=== PATIENT | male | born 1960 | race Hispanic/Latino ===

== ENCOUNTER → 2017-07-30 | Outpatient (CLI) | payer OTHER | LOC: OIH 13:39 | PROVIDERS: ATTEND Internal Medicine | DX: M47.896 Other spondylosis, lumbar region (principal) | CPT/HCPCS: 72040; 72100 ==

== ENCOUNTER 2019-02-04 12:40 | Observation (INO) | payer MEDICAID, OTHER ==
[~2019-02-04] VITALS: Ht 167.6 cm; Wt 71.7 kg
[2019-02-04] MEDS ORDERED: ASPIRIN 325 MG TABLET ONE (13:01)
[2019-02-04 13:05] LABS: BASOPHILS % (AUTO) 0.9 % (0.0-5.0); EOSINOPHILS % (AUTO) 1.5 % (0.0-8.0); HEMATOCRIT 42.7 % (42-54); LYMPHOCYTES % (AUTO) 33.8 % (21.0-51.0); MEAN CORPUSCULAR HEMOGLOBIN 31.3 pg (27.0-33.0); MEAN CORPUSCULAR VOLUME 89.3 fL (79-99); MONOCYTES % (AUTO) 5.1 % (3.0-13.0); NEUTROPHILS % (AUTO) 58.7 % (40.0-77.0); PLATELET COUNT (AUTO) 185 K/uL (130-400); RED BLOOD CELL COUNT(AUTO) 4.78 MIL/uL (4.50-6.20); RED CELL DISTRIBUTION WIDTH 13.2 % (11.0-15.5)
[2019-02-04 13:08] LABS: APPEARANCE,URINE Clear (CLEAR); BILIRUBIN,URINE Negative (NEGATIVE); COLOR,URINE Yellow (YELLOW); GLUCOSE, URINE (UA) >=1000 mg/dL (NEGATIVE); KETONES,URINE Negative (NEGATIVE); LEUKOCYTE ESTERASE ,URINE Negative (NEGATIVE); NITRATE,URINE Negative (NEGATIVE); OCCULT BLOOD,URINE Trace (NEGATIVE); PH,URINE 5.5 (5.0-8.0); PROTEIN,URINE Negative (NEGATIVE); UROBILINOGEN,URINE 0.2 mg/dL (0.2-1.0)
[2019-02-04 13:15] LABS: CREATININE 0.9 mg/dL (0.5-1.5); POTASSIUM 4.1 mmol/L (3.5-5.1)
[2019-02-04 13:19] LABS: ALBUMIN 3.8 g/dL (3.5-5.0); BILIRUBIN,TOTAL 0.6 mg/dL (0.2-1.0); TOTAL PROTEIN, SERUM 7.5 g/dL (6.0-8.3)
[2019-02-04 13:22] LABS: BACTERIA,URINE Rare /HPF (None Seen); INR 0.99 (0.85-1.15); PARTIAL THROMBOPLASTIN TIME 27.3 SEC (26.3-35.5); PROTHROMBIN TIME 10.4 SEC (9.6-11.6); RBC,URINE None Seen /HPF (0-1); WBC,URINE None Seen /HPF (0-1)
[2019-02-04 13:41] LABS: B-TYPE NATRIURETIC PEPTIDE < 5 pg/mL (0-100)
[2019-02-04] MEDS ORDERED: NITROGLYCERIN 1GM/1 INCH PACKET TD SCH (15:45)
[2019-02-04] MEDS ORDERED: ONDANSETRON HCL 4 MG/2 ML VIAL IV PRN (15:45)
[2019-02-04] MEDS ORDERED: MORPHINE SULFATE 2 MG/ML 1ML SYG IV PRN (15:45)
[2019-02-04] MEDS ORDERED: HYDRALAZINE HCL 20 MG/ML VIAL IV PRN (15:45)
[2019-02-04] MEDS ORDERED: ACETAMINOPHEN 325 MG TAB PO PRN (15:45)
[2019-02-04] MEDS ORDERED: NITROGLYCERIN 1GM/1 INCH PACKET TD ONE (16:13)
[2019-02-04] MEDS ORDERED: SODIUM CHLORIDE 0.9% 1000ML 1,000 ML IV ONE (16:14)
[2019-02-04 17:01] LABS: ALBUMIN 3.9 g/dL (3.5-5.0); BILIRUBIN,TOTAL 0.6 mg/dL (0.2-1.0); CREATININE 0.9 mg/dL (0.5-1.5); POTASSIUM 3.6 mmol/L (3.5-5.1); TOTAL PROTEIN, SERUM 7.7 g/dL (6.0-8.3)
[2019-02-04] MEDS ORDERED: ACETAMINOPHEN 325 MG TAB ONE (20:15)
[2019-02-04] MEDS: ATORVASTATIN CALCIUM 20 MG TABLET PO SCH (21:00)
[2019-02-04] MEDS: FAMOTIDINE/PF 20 MG/2 ML VIAL IV SCH (21:00)
[2019-02-04] MEDS: INSULIN GLARGINE 100 UNITS/ML 10 ML VIAL SQ SCH (21:00)
[2019-02-04] MEDS: INSULIN HUMULIN R 100 UNIT/ML 3ML SQ SCH (21:00)
[2019-02-04] MEDS: METOPROLOL TARTRATE 25 MG TAB PO SCH (21:00)
[2019-02-04] MEDS ORDERED: BUSP7.5T7 PO (21:36)
[2019-02-04] MEDS ORDERED: ERGO500014 PO (21:36)
[2019-02-04] MEDS ORDERED: IBUP-2077 PO (21:36)
[2019-02-04] MEDS ORDERED: EZET10TA48 PO (21:36)
[2019-02-04] MEDS ORDERED: INSLAN SQ (21:36)
[2019-02-04] MEDS ORDERED: DULO60CA64 PO (21:36)
[2019-02-04] MEDS ORDERED: METF-446 PO (21:36)
[2019-02-05] VITALS (7 sets, daily range): BP systolic 103–126; BP diastolic 51–78
--- NOTE | 2019-02-05 00:40 | NUR ---
ADMISSION PATIENT WAS TRANSFERRED ON STRETCHER FROM EMERGENCY ROOM ACCOMPANIED BY NURSE. PATIENT WAS TRANSFERRED TO BED WITH NO ISSUES. PATIENT IS RESTING. NO SHORTNESS OF BREATH. NO SIGNS OF DISTRESS. COMPLAINTS OF NO CHEST PAIN AT THIS TIME. PATIENT WAS MADE COMFORTABLE IN BED. CALL LIGHT, BEDSIDE TABLE, AND URINAL ARE WITHIN REACH. PATIENT REINFORCED TO CALL FOR ANY NEEDS. NO QUESTIONS, CONCERNS, OR NEEDS AT THIS TIME.
[2019-02-05 03:39] LABS: BASOPHILS % (AUTO) 0.6 % (0.0-5.0); EOSINOPHILS % (AUTO) 1.3 % (0.0-8.0); HEMATOCRIT 40.2 % (42-54); LYMPHOCYTES % (AUTO) 29.6 % (21.0-51.0); MEAN CORPUSCULAR HEMOGLOBIN 31.9 pg (27.0-33.0); MEAN CORPUSCULAR HGB CONC 35.2 g/dL (32.0-36.0); MEAN CORPUSCULAR VOLUME 90.7 fL (79-99); MONOCYTES % (AUTO) 6.4 % (3.0-13.0); NEUTROPHILS % (AUTO) 62.1 % (40.0-77.0); PLATELET COUNT (AUTO) 168 K/uL (130-400); RED BLOOD CELL COUNT(AUTO) 4.44 MIL/uL (4.50-6.20); RED CELL DISTRIBUTION WIDTH 13.1 % (11.0-15.5); WHITE BLOOD COUNT (AUTO) 8.7 K/uL (4.8-10.8)
[2019-02-05 03:43] LABS: ALBUMIN 3.5 g/dL (3.5-5.0); BILIRUBIN,TOTAL 0.9 mg/dL (0.2-1.0); CREATININE 0.7 mg/dL (0.5-1.5); POTASSIUM 3.9 mmol/L (3.5-5.1); TOTAL PROTEIN, SERUM 6.9 g/dL (6.0-8.3)
--- NOTE | 2019-02-05 04:00 | NUR ---
ASSESSMENT PATIENT IS RESTING IN BED. VOICES HAS NOT BEEN ABLE TO SLEEP ALL NIGHT. PATIENT HAS HISTORY OF MIGRAINES AND IS COMPLAINING OF A HEADACHE AGGRAVATED BY NITRO. PATIENT ASKED FOR A COLD WASHCLOTH TO PUT OVER EYES BUT DOES NOT WANT ANY PAIN MEDICATION AT THIS TIME. PATIENT DENIES CHEST PAIN VOICES A SLIGHT BURNING TO CHEST BUT LESS IN INTENSITY THAN WHEN FIRST CAME TO ER. PATIENT MADE COMFORTABLE. CALL LIGHT WITHIN REACH. BEDSIDE TABLE AND URINAL WITHIN REACH. VOICES NO QUESTIONS, CONCERNS, OR NEEDS AT THIS TIME.
[2019-02-05] MEDS: INSULIN HUMULIN R 100 UNIT/ML 3ML SQ SCH ×4 (06:21→20:28)
[2019-02-05] MEDS ORDERED: REGADENOSON 0.4 MG/5 ML PF SYG IVP SCH (07:15)
[2019-02-05] MEDS: ASPIRIN 325 MG TABLET PO SCH (09:37)
[2019-02-05] MEDS: FAMOTIDINE/PF 20 MG/2 ML VIAL IV SCH ×2 (09:37→20:35)
[2019-02-05] MEDS: METOPROLOL TARTRATE 25 MG TAB PO SCH ×2 (09:37→20:35)
[2019-02-05] MEDS: ENOXAPARIN SODIUM 40 MG/0.4 ML SYRINGE SQ SCH (09:38)
[2019-02-05] MEDS: METFORMIN HCL 500 MG TABLET PO SCH (16:28)
[2019-02-05] MEDS: ACETAMINOPHEN 325 MG TAB PO PRN ×2 (16:29→20:35)
[2019-02-05] MEDS: ATORVASTATIN CALCIUM 20 MG TABLET PO SCH (20:35)
[2019-02-05] MEDS: INSULIN GLARGINE 100 UNITS/ML 10 ML VIAL SQ SCH (20:41)
[2019-02-06 04:08] VITALS: BP 118/95
[2019-02-06 04:42] LABS: BASOPHILS % (AUTO) 0.8 % (0.0-5.0); EOSINOPHILS % (AUTO) 1.8 % (0.0-8.0); HEMATOCRIT 42.2 % (42-54); LYMPHOCYTES % (AUTO) 33.7 % (21.0-51.0); MEAN CORPUSCULAR HEMOGLOBIN 31.4 pg (27.0-33.0); MEAN CORPUSCULAR HGB CONC 35.1 g/dL (32.0-36.0); MEAN CORPUSCULAR VOLUME 89.4 fL (79-99); MONOCYTES % (AUTO) 7.1 % (3.0-13.0); NEUTROPHILS % (AUTO) 56.6 % (40.0-77.0); PLATELET COUNT (AUTO) 182 K/uL (130-400); RED BLOOD CELL COUNT(AUTO) 4.72 MIL/uL (4.50-6.20); RED CELL DISTRIBUTION WIDTH 13.3 % (11.0-15.5); WHITE BLOOD COUNT (AUTO) 7.2 K/uL (4.8-10.8)
[2019-02-06 04:57] LABS: ALBUMIN 3.4 g/dL (3.5-5.0); CREATININE 0.9 mg/dL (0.5-1.5); POTASSIUM 3.9 mmol/L (3.5-5.1)
[2019-02-06 05:12] LABS: BILIRUBIN,TOTAL 0.8 mg/dL (0.2-1.0); TOTAL PROTEIN, SERUM 7.2 g/dL (6.0-8.3)
[2019-02-06] MEDS: INSULIN HUMULIN R 100 UNIT/ML 3ML SQ SCH ×3 (05:41→16:30)
[2019-02-06 07:00] VITALS: BP 121/78
[2019-02-06] MEDS: METFORMIN HCL 500 MG TABLET PO SCH ×2 (07:57→16:44)
[2019-02-06] MEDS: ASPIRIN 325 MG TABLET PO SCH (08:00)
[2019-02-06] MEDS: METOPROLOL TARTRATE 25 MG TAB PO SCH (08:00)
[2019-02-06] MEDS: FAMOTIDINE/PF 20 MG/2 ML VIAL IV SCH (08:00)
[2019-02-06] MEDS: ENOXAPARIN SODIUM 40 MG/0.4 ML SYRINGE SQ SCH (08:01)
[2019-02-06 11:00] VITALS: BP 118/69
[2019-02-06] MEDS ORDERED: BUSPIRONE HCL 5 MG TABLET PO SCH (14:45)
[2019-02-06] MEDS ORDERED: DULOXETINE HCL 30 MG CAP PO SCH (14:45)
--- NOTE | 2019-02-06 15:22 | NUR ---
DC PLAN PATIENT LIVES WITH SPOUSE. INDEPENDENT ABLE TO PERFORM ADL'S. PATIENT HAS NO DME PROVIDER 3 HOURS A DAY. USES A CANE DOES NOT DRIVE. FEELS SAFE TO RETURN HOME. Addendum: 02/06/19 at 1523 by DONTE JONES RN CM Amended: Links added.
[2019-02-06 16:00] VITALS: BP 127/77
[2019-02-06] MEDS ORDERED: METO25 PO (17:02)
[2019-02-06] MEDS ORDERED: ATOR40TA69 PO (17:02)
[2019-02-06] MEDS ORDERED: ASPI-555 PO (17:02)
--- NOTE | 2019-02-06 18:00 | NUR ---
DISCHARGE PATIENT DISCHARGED HOME AT THIS TIME; PIV AND TELEPACK REMOVED; DC INSTRUCTIONS GIVEN; AT BEDSIDE; ALL QUESTIONS ANSWERED; NEW PRESCRIPTIONS SENT TO PATIENT'S PHARMACY
== END 2019-02-06 18:03 | disposition home or self-care (01) ==
LOC: EDH 12:40 → EDHIP 12:41 → INTOOBSV 12:41 → EDHIP 16:36 → 2CH 23:29
PROVIDERS: ADMIT Internal Medicine; ATTEND Internal Medicine
DX: R07.89 Other chest pain (principal); E11.9 Type 2 diabetes mellitus without complications; E78.5 Hyperlipidemia, unspecified; F41.9 Anxiety disorder, unspecified; I10 Essential (primary) hypertension; R61 Generalized hyperhidrosis; E78.00 Pure hypercholesterolemia, unspecified; Z86.79 Personal history of other diseases of the circulatory system; Z87.39 Personal history of other diseases of the musculoskeletal system and connective tissue; Z87.891 Personal history of nicotine dependence; Z79.4 Long term (current) use of insulin; Z79.899 Other long term (current) drug therapy
CPT/HCPCS: 36415 ×3; 71045; 78452; 80053 ×4; 80061; 81001; 82550; 82948 ×8; 83036; 83880; 84484 ×3; 85025 ×3; 85610; 85730; 93005 ×4; 93017; 96372 ×2; 96374; 96376 ×2; 99284; A9500 ×2; G0378 ×3; J1650 ×2; J1815; J2785; J3490 ×2; J7030

== ENCOUNTER 2019-07-08 18:13 | Emergency (ER) | payer MEDICAID ==
[~2019-07-08 18:13] MED LIST: ASPI-555 PO; ATOR40TA69 PO; BUSP7.5T7 PO; DULO60CA64 PO; ERGO500014 PO; IBUP-2077 PO; INSLAN SQ; METF-446 PO; METO25 PO
[2019-07-08 18:56] LABS: BASOPHILS % (AUTO) 0.7 % (0.0-5.0); HEMATOCRIT 41.1 % (42-54); MEAN CORPUSCULAR HEMOGLOBIN 30.2 pg (27.0-33.0); MEAN CORPUSCULAR HGB CONC 34.1 g/dL (32.0-36.0); MEAN CORPUSCULAR VOLUME 88.6 fL (79-99); MONOCYTES % (AUTO) 6.8 % (3.0-13.0); NEUTROPHILS % (AUTO) 54.1 % (40.0-77.0); PLATELET COUNT (AUTO) 170 K/uL (130-400); RED BLOOD CELL COUNT(AUTO) 4.64 MIL/uL (4.50-6.20); RED CELL DISTRIBUTION WIDTH 12.6 % (11.0-15.5); WHITE BLOOD COUNT (AUTO) 9.8 K/uL (4.8-10.8)
[2019-07-08 19:08] LABS: CREATININE 0.9 mg/dL (0.5-1.5); POTASSIUM 4.2 mmol/L (3.5-5.1)
[2019-07-08 19:08] LABS: APPEARANCE,URINE Clear (CLEAR); BILIRUBIN,URINE Negative (NEGATIVE); COLOR,URINE Yellow (YELLOW); GLUCOSE, URINE (UA) Negative (NEGATIVE); KETONES,URINE Negative (NEGATIVE); LEUKOCYTE ESTERASE ,URINE Negative (NEGATIVE); NITRATE,URINE Negative (NEGATIVE); OCCULT BLOOD,URINE Nonhemolyzed Trace (NEGATIVE); PH,URINE 6.5 (5.0-8.0); PROTEIN,URINE Negative (NEGATIVE)
[2019-07-08 19:10] LABS: ALBUMIN 4.1 g/dL (3.5-5.0); BILIRUBIN,TOTAL 0.9 mg/dL (0.2-1.0); TOTAL PROTEIN, SERUM 7.9 g/dL (6.0-8.3)
[2019-07-08 19:24] LABS: BACTERIA,URINE Few /HPF (None Seen); SQUAMOUS EPITHELIAL CELL,UR 0-2 /HPF (0-2)
[2019-07-08] MEDS ORDERED: ONDANSETRON ODT 4 MG TAB ONE (19:51)
[2019-07-08] MEDS ORDERED: MORPHINE SULFATE 5 MG/ML VIAL ONE (19:52)
== END 2019-07-08 21:21 | disposition home or self-care (01) ==
LOC: EDH 18:13
DX: N28.1 Cyst of kidney, acquired (principal); E11.9 Type 2 diabetes mellitus without complications; E78.5 Hyperlipidemia, unspecified; G43.909 Migraine, unspecified, not intractable, without status migrainosus
CPT/HCPCS: 36415; 74176; 76870; 80053; 81001; 85025; 96372; 99285; J2270

== ENCOUNTER 2020-01-20 07:31 | Observation (INO) | payer MEDICAID ==
[2020-01-16 10:58] VITALS: BP 150/66
[2020-01-16 11:51] LABS: BASOPHILS % (AUTO) 0.7 % (0.0-5.0); EOSINOPHILS % (AUTO) 0.9 % (0.0-8.0); HEMATOCRIT 45.3 % (42-54); LYMPHOCYTES % (AUTO) 35.6 % (21.0-51.0); MEAN CORPUSCULAR HEMOGLOBIN 30.8 pg (27.0-33.0); MEAN CORPUSCULAR HGB CONC 34.4 g/dL (32.0-36.0); MEAN CORPUSCULAR VOLUME 89.5 fL (79-99); MONOCYTES % (AUTO) 4.8 % (3.0-13.0); NEUTROPHILS % (AUTO) 57.9 % (40.0-77.0); PLATELET COUNT (AUTO) 164 K/uL (130-400); RED BLOOD CELL COUNT(AUTO) 5.06 MIL/uL (4.50-6.20); RED CELL DISTRIBUTION WIDTH 12.5 % (11.0-15.5); WHITE BLOOD COUNT (AUTO) 6.7 K/uL (4.8-10.8)
[2020-01-16 11:56] LABS: APPEARANCE,URINE Clear (CLEAR); BILIRUBIN,URINE Negative (NEGATIVE); COLOR,URINE Yellow (YELLOW); GLUCOSE, URINE (UA) Negative (NEGATIVE); KETONES,URINE Trace mg/dL (NEGATIVE); LEUKOCYTE ESTERASE ,URINE Negative (NEGATIVE); NITRATE,URINE Negative (NEGATIVE); OCCULT BLOOD,URINE Trace (NEGATIVE); PROTEIN,URINE Negative (NEGATIVE); UROBILINOGEN,URINE 0.2 mg/dL (0.2-1.0)
[2020-01-16 12:05] LABS: CREATININE 0.8 mg/dL (0.5-1.5); POTASSIUM 4.4 mmol/L (3.5-5.1)
[2020-01-16 12:06] LABS: BACTERIA,URINE Rare /HPF (None Seen); INR 0.99 (0.85-1.15); MUCUS,URINE Rare LPF (None Seen); PARTIAL THROMBOPLASTIN TIME 27.3 SEC (26.3-35.5); PROTHROMBIN TIME 10.7 SEC (9.6-11.6); RBC,URINE 0-1 /HPF (0-1); SQUAMOUS EPITHELIAL CELL,UR Rare /HPF (0-2); WBC,URINE 0-1 /HPF (0-1)
[2020-01-20] VITALS (16 sets, daily range): BP systolic 102–144; BP diastolic 54–78
[~2020-01-20] VITALS: Ht 167.6 cm; Wt 78.0 kg
[~2020-01-20 07:31] MED LIST changes: +AEC81 PO; -ASPI-555 PO; -ATOR40TA69 PO; -INSLAN SQ; +INSU3INS3 SQ; +LEVO250T59 PO; +MECL-160 PO; +METR-172 PO; +NAPR-1023 PO; +NITR0.4T50 SL; +ROSU20TA31 PO
[2020-01-20] MEDS ORDERED: ASPIRIN 81MG TAB.CHEW ONE (09:11)
[2020-01-20] MEDS ORDERED: ASPIRIN 81 MG EC TAB ONE (09:12)
[2020-01-20] MEDS ORDERED: METOPROLOL TARTRATE 25 MG TAB ONE (09:14)
[2020-01-20] MEDS ORDERED: NITROGLYCERIN 2 MG/VIAL VIAL IV ONE (10:52)
[2020-01-20] MEDS ORDERED: IOHEXOL 350 MG/ML 100ML INFUS..BTL IV ONE (10:52)
[2020-01-20] MEDS ORDERED: SODIUM BICARB 50MEQ 50ML VIAL ONE (10:52)
[2020-01-20] MEDS ORDERED: NICARDIPINE HCL 25 MG/10 ML ML IV ONE (10:52)
[2020-01-20] MEDS ORDERED: HEPARIN SODIUM 1000UNIT/ML 10ML VIAL ONE (10:52)
[2020-01-20] MEDS ORDERED: MIDAZOLAM HCL 1 MG/ML 2ML VIAL ONE (10:53)
[2020-01-20] MEDS ORDERED: LIDOCAINE HCL 2% 20ML ONE (10:53)
[2020-01-20] MEDS ORDERED: FENTANYL CITRATE PF 50 MCG/1 ML 2ML VIAL ONE ×3 (10:53→18:05)
[2020-01-20] MEDS ORDERED: ASPIRIN 81MG TAB.CHEW PO SCH (11:30)
[2020-01-20] MEDS ORDERED: METOPROLOL TARTRATE 25 MG TAB PO SCH (11:30)
--- NOTE | 2020-01-20 14:15 | NUR ---
CARLOS Corley called to inform him that the patient was complaining of a headache. Orders for Tylenol given.
[2020-01-20] MEDS ORDERED: ACETAMINOPHEN 325 MG TAB ONE (14:20)
[2020-01-20] MEDS ORDERED: SODIUM CHLORIDE 0.9% 1000ML 1,000 ML IV ONE (14:57)
--- NOTE | 2020-01-20 15:30 | NUR ---
Dr Sow called and notified that pt had been given Tylenol for a headache which has only progressively gotten worse. Pt now reports that headache is at a 10. Patient denies having a history of headaches or migraines. 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 Order for head CT without contrast given.
--- NOTE | 2020-01-20 16:30 | NUR ---
Dr. Sow informed that pt's headache persists at 10/10. Dr. Sow visited with pt and assessed him. Pt continues to insist on horrible head pain of 10/10. Pt shaking in pain. Comfort measures being offered, including ice compresses, low lighting, low noise levels. Orders for pain medication Fentanyl given, see physician orders.
--- NOTE | 2020-01-20 16:41 | NUR ---
Radiology here to take patient to CT. Accompanied patient to CT, pt report nausea while moving pt onto CT, otherwise tolerated procedure fine.
--- NOTE | 2020-01-20 16:54 | NUR ---
Pt back from CT. Fentanyl 50 mcg x 2 separate doses given 23 minutes apart upon returning. Pt reports no relief of pain, however does appear less distressed than before.
--- NOTE | 2020-01-20 17:45 | NUR ---
Dr. Sow here to see pt, aware of negative CT results, Pt still reporting headache of 02/06. Dr. Sow informed that pt states that he had a procedure before were he was given dye and had reacted with a bad headache. Orders for Benadryl, Solu-Medrol, and additional order of 50 mg Fentanyl given.
[2020-01-20] MEDS ORDERED: METHYLPREDNISOLONE SOD SUCC 125MG/2ML VIAL IVP SCH (18:00)
[2020-01-20] MEDS ORDERED: DiphenhydrAMINE HCL 50 MG/ML VIAL IV SCH (18:00)
[2020-01-20] MEDS ORDERED: METHYLPREDNISOLONE SOD SUCC 125MG/2ML VIAL ONE (18:02)
[2020-01-20] MEDS ORDERED: DiphenhydrAMINE HCL 50 MG/ML VIAL ONE (18:02)
[2020-01-20] MEDS ORDERED: ACETAMINOPHEN 325 MG TAB PO PRN ×2 (19:00)
[2020-01-20] MEDS ORDERED: ONDANSETRON HCL 4 MG/2 ML VIAL IV PRN (19:00)
[2020-01-20] MEDS ORDERED: GLUCAGON 1MG KIT 1 MG ML IM PRN (19:15)
[2020-01-20] MEDS ORDERED: DEXTROSE 50%-WATER 50 ML DISP.SYRIN IV PRN (19:15)
--- NOTE | 2020-01-20 19:30 | NUR ---
Pt vomited large amount. Mirna Grewal NP, assessing pt when pt experienced emesis. Pt cleaned up and mouth rinsed.
--- NOTE | 2020-01-20 20:00 | NUR ---
Pt appears relaxed. Continues to express pain to head of 10/10, but demeanor is calm, eyes closed, s facial grimacing, heavy breathing, or crying.
--- NOTE | 2020-01-20 20:30 | NUR ---
Patient going to room 405. Report given to LINDY Augustine via telephone. Care rendered over to LINDY Ramos at bedside. Pt resting comfortably, still complains of headache, but showing much less signs of pain, responsive but drifting off to sleep on and off.
[2020-01-20] MEDS: INSULIN HUMULIN R 100 UNIT/ML 3ML SQ SCH (21:00)
[2020-01-20] MEDS: FAMOTIDINE 20MG TAB 20 MG TAB PO SCH (21:17)
[2020-01-20] MEDS: HYDROCODONE/ACETAMINOPHEN 5/325 MG TAB PO PRN (21:25)
[2020-01-21] VITALS: BP 133/79
[2020-01-21] MEDS: HYDROCODONE/ACETAMINOPHEN 5/325 MG TAB PO PRN ×2 (03:11→09:59)
[2020-01-21 04:00] VITALS: BP 135/81
[2020-01-21] MEDS: INSULIN HUMULIN R 100 UNIT/ML 3ML SQ SCH (05:58)
[2020-01-21 06:32] LABS: BASOPHILS % (AUTO) 0.1 % (0.0-5.0); HEMATOCRIT 41.2 % (42-54); LYMPHOCYTES % (AUTO) 9.4 % (21.0-51.0); MEAN CORPUSCULAR HEMOGLOBIN 30.3 pg (27.0-33.0); MEAN CORPUSCULAR VOLUME 89.2 fL (79-99); NEUTROPHILS % (AUTO) 88.9 % (40.0-77.0); PLATELET COUNT (AUTO) 180 K/uL (130-400); RED BLOOD CELL COUNT(AUTO) 4.62 MIL/uL (4.50-6.20); RED CELL DISTRIBUTION WIDTH 12.6 % (11.0-15.5); WHITE BLOOD COUNT (AUTO) 12.6 K/uL (4.8-10.8)
[2020-01-21 06:55] LABS: HEMOGLOBIN A1C 7.3 % (4.0-6.0)
[2020-01-21 06:56] LABS: ALBUMIN 3.7 g/dL (3.5-5.0); BILIRUBIN,TOTAL 1.2 mg/dL (0.2-1.0); CREATININE 1.1 mg/dL (0.5-1.5); THYROID STIMULATING HORMONE 0.31 uIU/mL (0.36-3.74); TOTAL PROTEIN, SERUM 7.7 g/dL (6.0-8.3)
[2020-01-21 08:37] LABS: ERYTHROCYTE SEDIMENTATION RATE 10 MM/HR (0-20)
[2020-01-21] MEDS ORDERED: VERAPAMIL HCL 240 MG SRTAB PO ONE (09:48)
[2020-01-21] MEDS: FAMOTIDINE 20MG TAB 20 MG TAB PO SCH (09:56)
[2020-01-21] MEDS ORDERED: VERAPAMIL HCL 240 MG SRTAB PO SCH (10:19)
[2020-01-21] MEDS ORDERED: VERA240C3 PO (10:40)
--- NOTE | 2020-01-21 11:00 | NUR ---
Discharged to home to private auto via wheelchair, iv removed w/pressure dressing dry/intact, no c/o voiced; nad noted, skin w/d/p, amb w/steady gait.
--- NOTE | 2020-01-21 12:30 | NUR ---
CM NOTE PATIENT DISCHARGED HOME AND LEFT BEFORE I COULD SPEAK TO HIM. NO NEEDS VERBALIZED BY NURSING STAFF.
== END 2020-01-21 11:05 | disposition home or self-care (01) ==
LOC: DAH 07:31 → 4BH 07:32
PROVIDERS: ADMIT Internal Medicine; ATTEND Internal Medicine
DX: I99.8 Other disorder of circulatory system (principal); I25.10 Atherosclerotic heart disease of native coronary artery without angina pectoris; E78.2 Mixed hyperlipidemia; E11.9 Type 2 diabetes mellitus without complications; F32.9 Major depressive disorder, single episode, unspecified; I10 Essential (primary) hypertension
CPT/HCPCS: 36415 ×2; 70450; 71045; 80048; 80053; 80061; 81001; 82948 ×3; 83036; 84443; 85025 ×2; 85610; 85651; 85730; 93005; 93458; 96360; 96361 ×2; 96372; A4215; A4216; A4221; A4222; A4223 ×3; A4606; A4663; C1769; C1894 ×2; G0378 ×16; J1200; J1644 ×2; J2250; J2930; J3010 ×3; J3490 ×4; J7030; Q9965 ×2; Q9967; 99156; 99157

== ENCOUNTER 2020-01-22 15:32 | Emergency (ER) | payer MEDICAID ==
[~2020-01-22 15:32] MED LIST changes: -LEVO250T59 PO; -METO25 PO; +VERA240C3 PO
== END 2020-01-22 16:54 | disposition home or self-care (01) ==
LOC: EDH 15:32
DX: G43.909 Migraine, unspecified, not intractable, without status migrainosus (principal); E11.9 Type 2 diabetes mellitus without complications; E78.00 Pure hypercholesterolemia, unspecified
CPT/HCPCS: 70450

== ENCOUNTER 2020-05-22 06:57 | Emergency (ER) | payer MEDICARE ==
[2020-05-22 07:13] LABS: BASOPHILS % (AUTO) 0.8 % (0.0-5.0); EOSINOPHILS % (AUTO) 1.7 % (0.0-8.0); HEMATOCRIT 43.4 % (42-54); LYMPHOCYTES % (AUTO) 32.5 % (21.0-51.0); MEAN CORPUSCULAR HEMOGLOBIN 30.8 pg (27.0-33.0); MEAN CORPUSCULAR VOLUME 87.9 fL (79-99); NEUTROPHILS % (AUTO) 56.7 % (40.0-77.0); PLATELET COUNT (AUTO) 174 K/uL (130-400); RED BLOOD CELL COUNT(AUTO) 4.94 MIL/uL (4.50-6.20); RED CELL DISTRIBUTION WIDTH 12.1 % (11.0-15.5); WHITE BLOOD COUNT (AUTO) 7.1 K/uL (4.8-10.8)
[2020-05-22] MEDS ORDERED: IBUPROFEN 600 MG TABLET ONE (08:41)
== END 2020-05-22 09:25 | disposition home or self-care (01) ==
LOC: EDH 06:57
DX: S46.012A Strain of muscle(s) and tendon(s) of the rotator cuff of left shoulder, initial encounter (principal); E78.00 Pure hypercholesterolemia, unspecified; G43.909 Migraine, unspecified, not intractable, without status migrainosus; I10 Essential (primary) hypertension; E11.9 Type 2 diabetes mellitus without complications; X58.XXXA Exposure to other specified factors, initial encounter; Y93.89 Activity, other specified; Y92.89 Other specified places as the place of occurrence of the external cause; Y99.8 Other external cause status
CPT/HCPCS: 36415; 73030; 84484; 85025; 93005

== ENCOUNTER 2021-04-21 15:55 | Emergency (ER) | payer MEDICARE ==
[~2021-04-21] VITALS: Ht 167.6 cm; Wt 81.6 kg
[2021-04-21 16:21] LABS: BASOPHILS % (AUTO) 0.3 % (0.0-5.0); EOSINOPHILS % (AUTO) 0.7 % (0.0-8.0); HEMATOCRIT 39.9 % (42-54); LYMPHOCYTES % (AUTO) 12.5 % (21.0-51.0); MEAN CORPUSCULAR HEMOGLOBIN 30.5 pg (27.0-33.0); MEAN CORPUSCULAR HGB CONC 33.6 g/dL (32.0-36.0); MEAN CORPUSCULAR VOLUME 90.9 fL (79-99); MONOCYTES % (AUTO) 12.8 % (3.0-13.0); PLATELET COUNT (AUTO) 143 K/uL (130-400); RED BLOOD CELL COUNT(AUTO) 4.39 MIL/uL (4.50-6.20); RED CELL DISTRIBUTION WIDTH 12.6 % (11.0-15.5); WHITE BLOOD COUNT (AUTO) 5.8 K/uL (4.8-10.8)
[2021-04-21 16:29] LABS: APPEARANCE,URINE Clear (CLEAR); BILIRUBIN,URINE Negative (NEGATIVE); COLOR,URINE Yellow (YELLOW); GLUCOSE, URINE (UA) Negative (NEGATIVE); KETONES,URINE Trace mg/dL (NEGATIVE); LEUKOCYTE ESTERASE ,URINE Negative (NEGATIVE); NITRATE,URINE Negative (NEGATIVE); OCCULT BLOOD,URINE Small (NEGATIVE); PH,URINE 5.5 (5.0-8.0); PROTEIN,URINE Negative (NEGATIVE); UROBILINOGEN,URINE 0.2 mg/dL (0.2-1.0)
[2021-04-21 16:31] LABS: CREATININE 0.8 mg/dL (0.5-1.5); POTASSIUM 4.1 mmol/L (3.5-5.1)
[2021-04-21 16:36] LABS: BILIRUBIN,TOTAL 0.6 mg/dL (0.2-1.0); TOTAL PROTEIN, SERUM 7.2 g/dL (6.0-8.3)
[2021-04-21 16:39] LABS: BACTERIA,URINE Rare /HPF (None Seen); RBC,URINE None Seen /HPF (0-1); SQUAMOUS EPITHELIAL CELL,UR None Seen /HPF (0-2); WBC,URINE 0-1 /HPF (0-1)
[2021-04-21] MEDS ORDERED: KETOROLAC 15MG/ML VIAL (15MG/ML) ONE (16:47)
[2021-04-21] MEDS ORDERED: KETOROLAC 15MG/ML VIAL (15MG/ML) IV ONE (17:00)
[2021-04-21] MEDS ORDERED: DICL50TA9 PO (17:36)
[2021-04-21 17:41] VITALS: BP 126/75
== END 2021-04-21 18:01 | disposition home or self-care (01) ==
LOC: EDH 15:55
DX: R10.9 Unspecified abdominal pain (principal); E11.9 Type 2 diabetes mellitus without complications; E78.00 Pure hypercholesterolemia, unspecified; F41.9 Anxiety disorder, unspecified; I25.10 Atherosclerotic heart disease of native coronary artery without angina pectoris; Z79.1 Long term (current) use of non-steroidal anti-inflammatories (NSAID); Z79.4 Long term (current) use of insulin; Z79.82 Long term (current) use of aspirin; Z79.899 Other long term (current) drug therapy
CPT/HCPCS: 36415; 71045; 74176; 80053; 81001; 82150; 83690; 85025; 96374; 99285; J1885

== ENCOUNTER 2022-05-27 21:40 | Emergency (ER) | payer MEDICARE ==
[~2022-05-27] VITALS: Ht 165.1 cm; Wt 76.7 kg
[~2022-05-27 21:40] MED LIST changes: +DICL50TA9 PO
[2022-05-27] MEDS ORDERED: DiphenhydrAMINE HCL 50 MG/ML VIAL IM ONE (23:00)
[2022-05-27] MEDS ORDERED: HYDR-3421 PO (23:27)
[2022-05-27 23:32] VITALS: BP 152/69
== END 2022-05-27 23:33 | disposition home or self-care (01) ==
LOC: EDH 21:40
DX: L50.0 Allergic urticaria (principal); F41.9 Anxiety disorder, unspecified; E11.9 Type 2 diabetes mellitus without complications; E78.00 Pure hypercholesterolemia, unspecified; I10 Essential (primary) hypertension; Z79.1 Long term (current) use of non-steroidal anti-inflammatories (NSAID); Z79.82 Long term (current) use of aspirin; Z79.84 Long term (current) use of oral hypoglycemic drugs; Z79.899 Other long term (current) drug therapy
CPT/HCPCS: 99283; 96372; J1200

== ENCOUNTER 2024-02-14 05:11 | Emergency (ER) | payer OTHER, MEDICARE ==
[~2024-02-14] VITALS: Ht 167.6 cm; Wt 76.7 kg
[~2024-02-14 05:11] MED LIST changes: +HYDR-3421 PO; -MECL-160 PO; +MECL-302 PO; -ROSU20TA31 PO; +ROSU20TA98 PO
[2024-02-14] MEDS: morPHINE 4 MG SYG IVP ONE (05:43)
[2024-02-14] MEDS: ondanSETRON 4MG INJ IVP ONE (05:43)
[2024-02-14] MEDS: FAMOTIDINE 20MG TAB PO ONE (05:43)
[2024-02-14 06:40] LABS: BASOPHILS # (AUTO) 0.04 K/uL (0.00-0.20); BASOPHILS % (AUTO) 0.6 % (0.0-5.0); EOSINOPHILS # (AUTO) 0.19 K/uL (0.00-0.70); EOSINOPHILS % (AUTO) 2.8 % (0.0-8.0); HEMATOCRIT 40.9 % (42-54); IMMATURE GRANULOCYTE ABSOLUTE 0.01 K/uL (0-1); LYMPHOCYTES % (AUTO) 30.5 % (21.0-51.0); MEAN CORPUSCULAR HEMOGLOBIN 30.8 pg (27.0-33.0); MEAN CORPUSCULAR VOLUME 90.7 fL (79-99); MONOCYTES # (AUTO) 0.5 K/uL (0.1-1.0); NEUTROPHILS # (AUTO) 3.9 K/uL (1.8-7.7); PLATELET COUNT (AUTO) 163 K/uL (130-400); RED BLOOD CELL COUNT(AUTO) 4.51 MIL/uL (4.50-6.20); RED CELL DISTRIBUTION WIDTH 12.4 % (11.0-15.5); WHITE BLOOD COUNT (AUTO) 6.7 K/uL (4.8-10.8)
[2024-02-14 06:47] LABS: APPEARANCE,URINE CLEAR (CLEAR); BILIRUBIN,URINE NEGATIVE (NEGATIVE); COLOR,URINE LIGHT-YELLOW (YELLOW); GLUCOSE, URINE (UA) NEGATIVE (NEGATIVE); KETONES,URINE NEGATIVE (NEGATIVE); LEUKOCYTE ESTERASE ,URINE NEGATIVE Leu/uL (NEGATIVE); NITRATE,URINE NEGATIVE (NEGATIVE); PH,URINE 5.5 (5.0-8.0); PROTEIN,URINE NEGATIVE (NEGATIVE); UROBILINOGEN,URINE 0.2 mg/dL (0.2-1.0)
[2024-02-14 06:52] LABS: CREATININE 0.8 mg/dL (0.5-1.3); POTASSIUM 4.2 mmol/L (3.5-5.1)
[2024-02-14 06:57] LABS: ADD UA MICROSCOPIC NO
[2024-02-14] MEDS ORDERED: IOHEXOL 350 MG/ML 100ML INFUS..BTL IV ONE (08:01)
[2024-02-14] MEDS ORDERED: DICY20TA2 PO (09:04)
[2024-02-14 10:02] VITALS: BP 135/80; PULSE 88; RESP 16; TEMP 98.3; O2SAT 98
[2024-02-14] MEDS: DICYCLOMINE 20MG (10MG/ML) AMP IM ONE (10:10)
== END 2024-02-14 10:14 | disposition home or self-care (01) ==
LOC: EDH 05:11
DX: K59.00 Constipation, unspecified (principal); F41.9 Anxiety disorder, unspecified; F32.A Depression, unspecified; E11.9 Type 2 diabetes mellitus without complications; I10 Essential (primary) hypertension; E78.00 Pure hypercholesterolemia, unspecified; I25.10 Atherosclerotic heart disease of native coronary artery without angina pectoris; Z79.82 Long term (current) use of aspirin; Z79.899 Other long term (current) drug therapy
CPT/HCPCS: 99285; 74177; 96374; 96375; 80048; 83690; 85025; 81003; 36415; 96372; J2405; J2270; J0500; Q9967

== ENCOUNTER → 2024-02-20 | Outpatient (CLI) | payer OTHER, MEDICARE ==
[~2024-02-20] MED LIST changes: +DICY20TA2 PO
[2024-02-20 12:23] LABS: ALBUMIN 4.1 g/dL (3.5-5.0); CREATININE 0.9 mg/dL (0.5-1.3); MAGNESIUM 2.1 mg/dL (1.80-2.40); POTASSIUM 4.4 mmol/L (3.5-5.1); TOTAL PROTEIN, SERUM 7.8 g/dL (6.0-8.3)
== END | disposition home or self-care (01) ==
LOC: LAB 09:47
PROVIDERS: ATTEND Internal Medicine Cardiovascular Disease
DX: I25.119 Atherosclerotic heart disease of native coronary artery with unspecified angina pectoris (principal); E78.00 Pure hypercholesterolemia, unspecified; I10 Essential (primary) hypertension; Z79.899 Other long term (current) drug therapy
CPT/HCPCS: 36415; 80053; 80061; 82306; 83735

== ENCOUNTER 2024-09-19 13:25 | Emergency (ER) | payer OTHER, MEDICARE ==
[~2024-09-19] VITALS: Ht 167.6 cm; Wt 59.0 kg
[~2024-09-19 13:25] MED LIST changes: -NAPR-1023 PO; +NAPR-1194 PO
--- NOTE | 2024-09-19 13:40 | ERN ---
ED Note History of Present Illness Stated Complaint: RIGHT SHOULDER PAIN Chief Complaint: Earache Time Seen by MD: 13:28 Dictation: Patient is a 63-year-old male coming in with his with complaints of right ear pain with dizziness vertigo for the last two days. No fever no chills no nausea vomiting. States he has had a history of vertigo, sees an ENT behind the [facility] however he has never treated him. No headache at this time neurologically intact with a NIH is 0. Patient does have a left horizontal nystagmus on exam. Allergies: Coded Allergies: No Known Drug Allergies (Unverified Allergy, Unknown, 02/04/19) Home Meds Active Scripts Dicyclomine HCl (Bentyl) 20 Mg Tab, 1 TAB PO BID for irritable bowel symptoms for 10 Days, #20 TAB 0 Refills Prov:PAOLA BAUTISTA MD 02/14/24 Hydroxyzine HCl (Hydroxyzine HCl) 25 Mg Tablet, 25 MG PO BID for 5 Days, #10 TAB Prov:IRMA HORAN 05/27/22 Diclofenac Sodium (Diclofenac Sodium) 50 Mg Tablet.dr, 50 MG PO TIDP PRN for PAIN LEVEL 7 TO 10, #15 TAB 0 Refills Prov:LORRAINE QUEVEDO MD 04/21/21 Reported Medications Verapamil HCl (Verapamil Sr) 240 Mg Cap24h.pel, 240 MG PO DAILY 01/21/20 Aspirin (ASPIRIN 81 MG ECTAB) 81 Mg Ectab, 81 MG PO DAILY, TAB.EC 01/19/20 Metronidazole (Metronidazole) 500 Mg Tablet, 500 MG PO TID, TAB 01/19/20 Nitroglycerin (Nitroglycerin) 0.4 Mg Tab.subl, 0.4 MG SL AD PRN for CHEST PAIN, TAB.SL 01/19/20 Naproxen (Naproxen) 500 Mg Tablet, 500 MG PO AD, TAB 01/19/20 Rosuvastatin Calcium (Rosuvastatin Calcium) 20 Mg Tablet, 20 MG PO DAILY, TAB 01/19/20 Meclizine HCl (Meclizine HCl) 25 Mg Tablet, 25 MG PO TID, TAB 01/19/20 Insulin Glargine,Hum.rec.anlog (Lantus Solostar) 100 Unit/1 Ml Insuln.pen, 20 UNIT SQ AD, SYRINGE 01/19/20 Metformin HCl (Metformin HCl) 1,000 Mg Tablet, 1000 MG PO BID, TAB 02/04/19 Ergocalciferol (Vitamin D2) (Vitamin D2) 50,000 Unit Capsule, 06728 UNIT PO AD, CAP 02/04/19 Ibuprofen (Ibuprofen 800 mg Tab) 800 Mg Tab, 800 MG PO Q6H PRN for PAIN, TAB 02/04/19 Duloxetine HCl (Duloxetine HCl) 60 Mg Capsule.dr, 60 MG PO DAILY, CAP 02/04/19 Buspirone HCl (Buspirone HCl) 7.5 Mg Tablet, 7.5 MG PO BID PRN for ANXIETY/AGITATION, TAB 02/04/19 Past Medical History Past Medical History: Anxiety, CAD, Depression, Diabetes-Type II, High Cholesterol, Hypertension Additional Past Medical Hx: VERTIGO Surgical History: Other Surgical History Other: VEIN REMOVAL FROM THIGH TO HEAD patient gives a history of brain aneurysm Family History: Negative Social History: Negative, Other RN Note Reviewed/Agreed w/PFSH: Yes Review of System Dictation CONSTITUTIONAL: Negative except for HPI HEAD/FACE: Negative except for HPI EENT: Negative except for HPI right ear pain RESPIRATORY: Negative except for HPI GASTROINTESTINAL/ABDOMINAL: Negative except for HPI GENITOURINARY: Negative except for HPI MUSCULOSKELETAL: Negative except for HPI INTEGUMENTARY: Negative except for HPI NEUROLOGICAL/PSYCH: Negative except for HPI HEMATOLOGIC/LYMPHATIC: Negative except for HPI All Systems Negative, Except as noted above. 13 point review of systems assessed and all negative except for above. Initial Vital Sign VS Vital Signs Date Time Temp Pulse Resp B/P (MAP) Pulse Ox O2 Delivery O2 Flow Rate FiO2 09/19/24 13:30 98.8 70 18 161/81 97 Room Air Physical Exam Dictation VITAL SIGNS REVIEWED GENERAL APPEARANCE: ALERT, ORIENTED X 3, MODERATE ACUTE DISTRESS, WELL DEVELOPED, NOURISHED. HEAD AND FACE: NON-TRAUMATIC. EYES: PERRL, PINK CONJUNCTIVAS, EYELID NO TRAUMA, ANTERIOR CHAMBER WITH ARCUS SENILIS. LEFT HORIZONTAL NYSTAGMUS EARS: PINNAS INTACT AND NO SIGNS OF TRAUMA LEFT OTIC CANAL WITH ERYTHEMA MILD SWELLING. NOSE: NO DISCHARGE, NO BLEEDING. OROPHARYNX: MOUTH NORMAL, TONGUE PINK, PHARYNX CLEAR,NO ERYTHEMA, TONSILS NO EXUDATES, NO ABSCESSES NOTED, MUCOUS MEM BRANE MOIST NECK: SUPPLE, NON-TENDER, NO THYROMEGALY, NO MASSES, NO JVD, NO BRUITS BREAST:DEFERRED CHEST:NO TENDERNESS, NO CREPITUS, NO PARADOXICAL MOVEMENT, NO RETRACTIONS LUNGS:CLEAR, WELL-VENTILATED, SYMMETRIC, NO RALES, NO WHEEZING, NO RHONCHI, NO STRIDOR, GOOD BREATH SOUNDS BILATERALLY HEART: REGULAR RATE, REGULAR RHYTHM, NO MURMUR, NO GALLOPS VASCULAR: NO PERIPHERAL EDEMA, ABDOMEN: SOFT, POSITIVE BOWEL SOUNDS, NONDISTENDED, NO GUARDING, NONTENDER, NO REBOUND, NO MASSES NO HEPATOMEGALY, NO SPLENOMEGALY, NO LACKEY'S SIGN, NO HERNIAS. RECTAL: DEFERRED GENITAL: DEFERRED NEUROLOGICAL: NORMAL SPEECH, MOTOR FUNCTION INTACT, SENSORY FUNCTION INTACT MUSCULOSKELETAL: NECK NONTENDER, FULL RANGE OF MOTION, BACK NONTENDER, FULL RANGE OF MOTION, EXTREMITIES: NONTENDER, FULL RANGE OF MOTION SKIN: COLOR PINK, DRY, NO TURGOR, NO RASH, NO LACERATIONS, NO ABRASIONS, NO CONTUSIONS. LYMPHATIC: DEFERRED Results (Laboratory/Radiology) Laboratory/Radiology Laboratory Tests Test 09/19/24 14:11 White Blood Count 7.2 K/uL (4.8-10.8) Red Blood Count 4.71 MIL/uL (4.50-6.20) Hemoglobin 15.0 g/dL (14.0-18.0) Hematocrit 42.1 % (42-54) Mean Corpuscular Volume 89.4 fL (79-99) Mean Corpuscular Hemoglobin 31.8 pg (27.0-33.0) Mean Corpuscular Hemoglobin Concent 35.6 g/dL (32.0-36.0) Red Cell Distribution Width 12.4 % (11.0-15.5) Platelet Count 157 K/uL (130-400) Mean Platelet Volume 11.5 fL (7.5-10.5) H Immature Granulocyte % (Auto) 0.3 % (0-1) Neutrophils (%) (Auto) 57.2 % (40.0-77.0) Lymphocytes (%) (Auto) 32.6 % (21.0-51.0) Monocytes (%) (Auto) 7.0 % (3.0-13.0) Eosinophils (%) (Auto) 2.1 % (0.0-8.0) Basophils (%) (Auto) 0.8 % (0.0-5.0) Neutrophils # (Auto) 4.1 K/uL (1.8-7.7) Lymphocytes # (Auto) 2.3 K/uL (1.0-4.8) Monocytes # (Auto) 0.5 K/uL (0.1-1.0) Eosinophils # (Auto) 0.15 K/uL (0.00-0.70) Basophils # (Auto) 0.06 K/uL (0.00-0.20) Absolute Immature Granulocyte (auto 0.02 K/uL (0-1) Nucleated Red Blood Cells 0.0 % (0.0-0.19) Sodium Level 138 mmol/L (136-145) Potassium Level 4.3 mmol/L (3.5-5.1) Chloride Level 102 mmol/L (101-111) Carbon Dioxide Level 26 mmol/L (21-32) Blood Urea Nitrogen 16 mg/dL (7-18) Creatinine 0.8 mg/dL (0.5-1.3) Glomerular Filtration Rate Calc 99 mL/min (>90) Random Glucose 172 mg/dL (70-105) H Total Calcium 8.9 mg/dL (8.5-10.1) Troponin I High Sensitivity 7 ng/L (4-75) Labs Reviewed?: Yes EKG Comment: EKG SINUS RHYTHM/HEART RATE 68/AXIS NORMAL/LEFT VENTRICULAR HYPERTROPHY NOTED ED Course ED Course Orders Procedure Category Date Status Time Cbc With Differential LAB 09/19/24 Complete 13:37 Troponin I High LAB 09/19/24 Complete Sensitivity 13:37 12 Lead Ekg Tracing- EKG 09/19/24 Complete Technical 13:37 0.9%Nacl 1000ml (Ns PHA 09/19/24 Complete 1000ml) 14:00 Basic Metabolic Panel LAB 09/19/24 Complete 13:37 Methylprednisolone PHA 09/19/24 Complete Succ 125mg (Solu-Medr 14:00 Meclizine Hcl 25 Mg PHA 09/19/24 Complete (Antivert 25 Mg) 14:00 Ketorolac PHA 09/19/24 Complete Tromethamine 30mg/Ml 14:00 Current Medications Medications (Trade) Dose Ordered Sig/Kera Route PRN Reason Start Time Stop Time Status Last Admin Dose Admin Ketorolac Tromethamine (toRADol) 30 mg ONCE ONCE IVP 09/19/24 14:00 09/19/24 14:01 DC 09/19/24 14:01 Meclizine HCl (ANTIvert 25 mg) 50 mg ONCE ONCE PO 09/19/24 14:00 09/19/24 14:01 DC 09/19/24 14:02 Methylprednisolone Sodium Succinate (Solu-medROL 125MG) 125 mg ONCE ONCE IVP 09/19/24 14:00 09/19/24 14:01 DC 09/19/24 14:01 Sodium Chloride 1,000 ml @ 0 mls/hr ONCE ONCE IV 09/19/24 14:00 09/19/24 14:01 DC 09/19/24 14:01 Vital Signs Date Time Temp Pulse Resp B/P (MAP) Pulse Ox O2 Delivery O2 Flow Rate FiO2 09/19/24 13:30 98.8 70 18 161/81 97 Room Air 1530/PATIENT STATES FEELS MARKEDLY IMPROVED AFTER FLUIDS METHYLPREDNISOLONE MECLIZINE. DISCHARGED HOME WITH POSITIONAL VERTIGO AND DIABETES WITH HYPERGLYCEMIA. WE WILL BE GIVEN MEDROL DOSEPAK, MECLIZINE AND TOLD TO FOLLOW UP WITH HIS ENT. HEART Score Response (Comments) Value EKG: Normal 0 Age: 45-65yrs (+1) 1 Risk Factors: 1-2 risk factors (+1) 1 Initial Troponin: Normal limit (0) 0 Total 2 Medical Decision Making MDM MEDICAL DISCHARGE MAKING BASED ON BASIC LABS AND EKG. ALL LABS NEGATIVE EXCEPT FOR GLUCOSE 172 PATIENT TREATED FOR BENIGN POSITIONAL VERTIGO AND LABYRINTHITIS FEELS IMPROVED AFTER TREATMENT NIH IS 0 DX & DISP Disposition: Discharge Departure Impression: Primary Impression: Benign positional vertigo Additional Impression: Diabetes mellitus with hyperglycemia Condition: Stable Scripts Meclizine HCl (Meclizine HCl) 25 Mg Tablet 25 MG PO TIDP PRN for DIZZINESS/VERTIGO, #40 TAB Prov: YUDELKA CERDA [employer]ORM DOOR MAKER 09/19/24 Methylprednisolone (Medrol) 4 Mg Tab.ds.pk 1 TAB PO AD for 6 Days, #21 TAB 0 Refills 6 on day 1 then reduce by one tablet daily until gone Prov: YUDELKA CERDA ST[employer]OR MAKER 09/19/24 Additional Instructions: FOLLOW-UP WITH PRIMARY CARE PROVIDER IN 1 TO 2 DAYS. TAKE MEDICATIONS DIRECTED HERE IN THE EMERGENCY ROOM. OKAY TO CONTINUE HOME MEDICATIONS UNLESS OTHERWISE DISCUSSED DURING YOUR VISIT IN THE EMERGENCY ROOM TODAY. RETURN TO YOUR NEAREST EMERGENCY ROOM IF SYMPTOMS WORSEN OR IF THERE IS NO IMPROVEMENT. CALL 911 IF YOU NEED IMMEDIATE ASSISTANCE. TAKE TYLENOL OR MOTRIN [id number] NEEDED AND IF NO CONTRAINDICATIONS ARE PRESENT. INCREASE ORAL HYDRATION. A WOUND CULTURE OR URINE CULTURE WAS ORDERED HERE IN THE EMERGENCY ROOM DEPARTMENT PLEASE FOLLOW-UP WITH PRIMARY CARE PROVIDER AND ADVISE THEM TO GET REPEAT PORTS FROM OUR FACILITY. IF YOU HAD ANY LEVI WRAP/SPLINTS THAT WERE APPLIED HERE, PLEASE DO NOT REMOVE THEM UNTIL YOU SEE YOUR PRIMARY CARE OR SPECIALTY. TAKE MECLIZINE EVERY 8 HOURS FOR THE NEXT THREE DAYS. TAKE MEDROL DOSEPAK DIRECTED UNTIL GONE. SEE YOUR PRIMARY CARE DOCTOR FOR FOLLOW UP AND MANAGEMENT Referrals: ELIO SULLIVAN (PCP) Time of Disposition: 15:33 I have reviewed the case, and I agree with, Diagnosis and Plan YUDELKA CERDA [employer]OR MAKER September 19, 2024 13:40
[2024-09-19] MEDS: Solu-medROL 125MG VIAL IVP ONE (14:01)
[2024-09-19] MEDS: 0.9%NACL 1000ML 1,000 ML IV ONE (14:01)
[2024-09-19] MEDS: ketOROlac 30MG VIAL (30MG/ML) IVP ONE (14:01)
[2024-09-19] MEDS: mecliZINE HCL 25 MG TABLET PO ONE (14:02)
[2024-09-19 14:26] LABS: BASOPHILS # (AUTO) 0.06 K/uL (0.00-0.20); BASOPHILS % (AUTO) 0.8 % (0.0-5.0); EOSINOPHILS # (AUTO) 0.15 K/uL (0.00-0.70); EOSINOPHILS % (AUTO) 2.1 % (0.0-8.0); HEMATOCRIT 42.1 % (42-54); IMMATURE GRANULOCYTE ABSOLUTE 0.02 K/uL (0-1); LYMPHOCYTES # (AUTO) 2.3 K/uL (1.0-4.8); LYMPHOCYTES % (AUTO) 32.6 % (21.0-51.0); MEAN CORPUSCULAR HEMOGLOBIN 31.8 pg (27.0-33.0); MEAN CORPUSCULAR HGB CONC 35.6 g/dL (32.0-36.0); MEAN CORPUSCULAR VOLUME 89.4 fL (79-99); MONOCYTES # (AUTO) 0.5 K/uL (0.1-1.0); NEUTROPHILS # (AUTO) 4.1 K/uL (1.8-7.7); NEUTROPHILS % (AUTO) 57.2 % (40.0-77.0); PLATELET COUNT (AUTO) 157 K/uL (130-400); RED BLOOD CELL COUNT(AUTO) 4.71 MIL/uL (4.50-6.20); RED CELL DISTRIBUTION WIDTH 12.4 % (11.0-15.5); WHITE BLOOD COUNT (AUTO) 7.2 K/uL (4.8-10.8)
[2024-09-19 14:39] LABS: CREATININE 0.8 mg/dL (0.5-1.3); POTASSIUM 4.3 mmol/L (3.5-5.1)
--- NOTE | 2024-09-19 15:08 | EKG ---
[facility] Test Date: 2024-09-19 Test Time: 13:48:41 Pat Name: NAOMI TELLEZ Department: ED Room: Gender: M Wedding Decorator: [id number] : 1960 Requested By: YUDELKA CERDA Order Number: [id number] Reading MD: Agata Morel Measurements Intervals [place] Rate: 68 P: 70 UT: 197 QRS: -17 QRSD: 88 T: 65 QT: 365 QTc: 387 Interpretive Statements Sinus rhythm Consider left ventricular hypertrophy Compared to ECG 05/22/2020 06:59:02 No significant changes Electronically Signed On 09-20-2024 14:28:54 CDT by Agata Morel Please click the below link to view image of tracing.
[2024-09-19] MEDS ORDERED: MECL-302 PO (15:34)
[2024-09-19] MEDS ORDERED: METH4TAB3 PO (15:34)
[2024-09-19 15:38] VITALS: BP 147/79; PULSE 72; RESP 18; TEMP 98.8; O2SAT 97
== END 2024-09-19 15:44 | disposition home or self-care (01) ==
LOC: EDH 13:25
DX: H81.11 Benign paroxysmal vertigo, right ear (principal); E11.65 Type 2 diabetes mellitus with hyperglycemia; E78.00 Pure hypercholesterolemia, unspecified; F41.9 Anxiety disorder, unspecified; I10 Essential (primary) hypertension; I25.10 Atherosclerotic heart disease of native coronary artery without angina pectoris; Z79.82 Long term (current) use of aspirin; Z79.84 Long term (current) use of oral hypoglycemic drugs; Z79.899 Other long term (current) drug therapy
CPT/HCPCS: 99284; 96374; 96361; 96375; 84484; 80048; 85025; 36415; 93005; J1885; J2919; J7030